=== PATIENT | female | born 1995 | race Caucasian/White ===

== ENCOUNTER 2020-06-24 07:01 | Day surgery (SDC) | payer OTHER ==
[2020-06-20 16:56] VITALS: BMI 29.7
--- NOTE | 2020-06-24 07:00 | HP ---
History & Physical Update - Physical Physical: No Change - Assessment Assessment: No Change - Plan Plan: No Change
[2020-06-24] MEDS ORDERED: ONDANSETRON 4 MG/2 ML VIAL ONE (08:01)
[2020-06-24] MEDS ORDERED: DEXAMETHASONE SOD PHOSPHATE 4 MG/1 ML VIAL ONE ×2 (08:01→09:23)
[2020-06-24] MEDS ORDERED: PROPOFOL 20 ML ONE (08:02)
[2020-06-24] MEDS ORDERED: MIDAZOLAM HCL 2 MG/2 ML SINGLE DOSE VIAL ONE (08:02)
[2020-06-24] MEDS ORDERED: ceFAZolin SODIUM 1 GM VIAL ONE (08:07)
[2020-06-24] MEDS ORDERED: BUPIVACAINE HCL/PF 0.25% (2.5MG/ML) 10 ML VIAL ONE (08:40)
[2020-06-24] MEDS ORDERED: oxyCODONE HCL 5 MG TABLET PO PRN ×2 (08:55)
[2020-06-24] MEDS ORDERED: ONDANSETRON 4 MG/2 ML VIAL IVPUSH PRN (08:55)
[2020-06-24] MEDS ORDERED: LACTATED RINGERS SOLUTION 1,000 ML IV SCH (09:00)
[2020-06-24] MEDS ORDERED: BUPIVACAINE HCL/PF 0.25% (2.5MG/ML) 10 ML VIAL IJ ONE ×2 (09:09→09:24)
[2020-06-24] MEDS ORDERED: KETOROLAC TROMETHAMINE 30 MG/1 ML VIAL ONE (09:23)
[2020-06-24 11:19] VITALS: TEMP 98.3
[2020-06-24 12:41] VITALS: BP 110/76; PULSE 64
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
--- NOTE | 2020-06-28 16:39 | PATH ---
Surgical Pathology Report Patient Name: BEATRIZ RICKS Med. Rec. #: [id number] /Age/Gender: 1995 (Age: 25) / F Account: [id number] Location: [facility] Taken: 06/24/2020 Received: 06/24/2020 Reported: 06/28/2020 Physicians: Robert Del Rio MD Specimen(s) Received SHAVINGS LEFT KNEE Clinical History Medial meniscal tear left knee Final Diagnosis KNEE SHAVINGS, LEFT, ARTHROSCOPY, MEDIAL MENISCECTOMY: FRAGMENTS OF DENSE FIBROCONNECTIVE TISSUE, ADIPOSE TISSUE, AND SYNOVIUM. Electronically Signed Geetha Savage M.D. Gross Description Received in formalin, labeled "left knee shavings," is a 4.5 x 3.5 x 0.3 cm. aggregate of cardona-yellow soft tissue fragments. A primary care sales representative portion is submitted in one cassette. /06/27/2020 [facility]/06/27/2020
== END 2020-06-24 12:15 | disposition home or self-care (01) ==
LOC: FASU 07:01
PROVIDERS: ATTEND Orthopaedic Surgery Sports Medicine
PROC: 0SBD4ZZ Excision of Left Knee Joint, Percutaneous Endoscopic Approach (ICD-10-PCS; 2020-06-24)
PROC: 0SBD4ZZ Excision of Left Knee Joint, Percutaneous Endoscopic Approach (ICD-10-PCS; principal; 2020-06-24 08:30)
DX: S83.242A Other tear of medial meniscus, current injury, left knee, initial encounter (principal); M65.862 Other synovitis and tenosynovitis, left lower leg; X58.XXXA Exposure to other specified factors, initial encounter; Y93.9 Activity, unspecified; Y92.9 Unspecified place or not applicable
CPT/HCPCS: 84703; 88304-TC; 94760